=== PATIENT | female | born 1950 | race Caucasian/White ===

== ENCOUNTER 2016-05-24 15:16 | Emergency (ER) | payer MEDICARE, OTHER ==
[~2016-05-24] VITALS: Ht 160 cm; Wt 80.0 kg
[2016-05-24 15:32] VITALS: BP 152/87; PULSE 102; RESP 16; O2SAT 97
[2016-05-24 17:29] VITALS: BP 186/83; PULSE 90; RESP 16; O2SAT 100
[2016-05-24] MEDS ORDERED: LOVA20TA PO (17:38)
[2016-05-24] MEDS ORDERED: VENL150C98 PO (17:38)
[2016-05-24] MEDS ORDERED: LOSA1TAB69 PO (17:38)
[2016-05-24] MEDS ORDERED: ALBU8.5H2 INHALATION (17:38)
[2016-05-24] MEDS ORDERED: PRE20 PO (17:38)
[2016-05-24] MEDS ORDERED: CARV25TA2 PO (17:38)
[2016-05-24] MEDS ORDERED: GLIP2.5T2 PEG (17:38)
[2016-05-24] MEDS ORDERED: AMOX-366 PO (17:38)
[2016-05-24] MEDS ORDERED: MELO-253 PO (17:38)
[2016-05-24] MEDS ORDERED: SITA1TAB6 PO (17:38)
--- NOTE | 2016-05-24 17:44 | ED.REPORT ---
HPI-URI / Cough / Cold Date of Service May 24, 2016 ED Provider: Doc,Ed MD History of Present Illness: d-dimer at 1.7. takes hormone replacement. Sees person at Dr. Yeager. took z-pack given prendisone and augment today for cough. x-rays have been normal. no hx of asthma. Nursing Notes Stated Complaint: COUGH, SENT FROM URGENT CARE Chief Complaint: Respiratory Complaints Allergies: Coded Allergies: No Known Allergies (Unverified , 05/24/16) Scheduled Albuterol HFA (Proair HFA) 8.5 Gm Hfa.aer.ad 2 PUFFS INHALATION Q4H Amoxicillin/Clav K 875-125 mg (Augmentin 875-125 mg) 1 Each Tablet 1 TABLET PO BID Carvedilol (Carvedilol) 25 Mg Tablet 25 MG PO BID Glipizide ER (Glipizide ER) 2.5 Mg Tab.er.24 2.5 MG PEG QAM Losartan/HCTZ 50-12.5 mg (Losartan/HCTZ 50-12.5 mg) 1 Each Tablet 1 TAB PO DAILY Lovastatin (Lovastatin) 20 Mg Tablet 20 MG PO HS Meloxicam (Meloxicam) 15 Mg Tablet 15 MG PO DAILY Prednisone (PredniSONE) 20 Mg Tablet 40 MG PO DAILY Sitagliptin/Metformin 50-1000 mg (Janumet 50-1000 mg) 1 Each Tablet 1 TAB PO BID Venlafaxine ER (Venlafaxine ER) 150 Mg Cap.er.24h 150 MG PO QAM General Time Seen by MD: 17:43 Chief Complaint Cough, productive... (Yellow) Hx Obtained From: Patient Onset Occurred: More than a week ago... (2 weeks) Past Medical History Past Medical History Denies: Asthma Past Surgical History knee replacement, breast reduction sinus surgery Reports: Hysterectomy Smoking History Never Smoker Social History Alcohol Use: "Social" Drug Use: Denies drug use Occupation lives with , work at a [employer] 05/24/2016 Ambulatory Status Independent Review of Systems Basic Review of Systems Cardiovascular: No chest pain, No dyspnea on exertion, No orthopnea, No parox noct dyspnea, No palpitations Hematologic: No bleeding, No bruising Psychiatric: Normal thought content Physical Exam Initial Vital Signs Vital Signs (First) Date Time Temp Pulse Resp B/P Pulse Ox O2 Delivery O2 Flow Rate FiO2 05/24/16 15:32 37.1 102 16 152/87 97 Room Air Initial VS: Reviewed, Vital signs normal Head / Eyes: Atraumatic, Normocephalic, PERRL Neck: Supple, Non-tender, Full range of motion Cardiovascular: Regular rate & rhythm, Heart sounds normal, Intact distal pulses Abdomen / GI: Soft, Non-tender, No guarding, No rebound, No distention Back: No CVA tenderness Lymphatic: No lymphadenopathy Extremities: Vascular intact, Neuro intact, No swelling, No tenderness Skin: Warm, Dry, No cyanosis Neurologic: Alert, Oriented, Nonfocal Psychiatric: Mood/affect normal, Behavior normal, Normal thought content General/Constitutional: Awake, Alert, No acute distress, Well appearing, Well developed, Well hydrated, Well nourished, Cooperative, Not toxic appearing ENT: Atraumatic, Airway patent, Mucous membranes moist, Pharynx NL Respiratory / Chest: Atraumatic, Breath sounds NL, Breath sounds = bilat, No respiratory distress Head / Eyes: Atraumatic, Normocephalic, PERRL Cardiovascular: Heart rate NL, Regular rhythm, Heart sounds NL, No gallop Abdomen: Atraumatic, Soft, Non-tender, McBurney's non-tender Interpretation & Diagnostics Interpretation & Diagnostics: Chest angio is negative for any filling defects Lab Results Interpretation Result Diagram: 05/24/16 1800 05/24/16 1800 Test 05/24/16 18:00 White Blood Count 6.4th/mm3 (3.8-10.1) Red Blood Count 4.42mil/mm3 (3.90-5.20) Hemoglobin 13.5g/dL (12.0-15.6) Hematocrit 40.1% (35.0-46.0) Mean Corpuscular Volume 90.7fL (81-100) Mean Corpuscular Hemoglobin 30.5pg (27.0-35.0) Mean Corpuscular Hemoglobin Concent 33.7% (32.0-37.0) Red Cell Distribution Width 13.0% (12.3-15.4) Platelet Count 314bil/L (150-400) Neutrophils (%) (Auto) 71.5% (40-74) Lymphocytes (%) (Auto) 23.9% (14-46) Monocytes (%) (Auto) 2.8% (4-12) Eosinophils (%) (Auto) 1.3% (0-5) Basophils (%) (Auto) 0.2% (0-3) Sodium Level 136mEq/L (134-144) Potassium Level 4.2mEq/L (3.5-5.2) Chloride Level 96mEq/L (97-108) Carbon Dioxide Level 22mmol/L (18-29) Blood Urea Nitrogen 16mg/dL (8-27) Creatinine 0.69mg/dL (0.57-1.00) Estimat Glomerular Filtration Rate 122mL/min (>59) Glucose Level 302mg/dL (60-99) Calcium Level 10.0mg/dL (8.5-10.1) Total Bilirubin 0.2mg/dL (0.0-1.2) Aspartate Amino Transf (AST/SGOT) 26U/L (0-50) Alanine Aminotransferase (ALT/SGPT) 36U/L (0-32) Alkaline Phosphatase 60U/L (25-165) Total Protein 8.0g/dL (6.4-8.4) Albumin 4.3g/dL (3.4-5.0) Thyroid Stimulating Hormone (TSH) 1.240uIU/mL (0.450-4.500) Hold Garcia Top Tube Received (Received) Re-Eval/Medical Decision Med Decision/Clinical Course Med Decision/Clinical Course: 65 year old female sent from urgent care with elevated d-dime. CT angio is negative. Patient has been prescribed augment in steroids from the urgent care. No sign of COPD of blood clot Discharge & Departure Impression: Primary Impression: Cough Disposition: Home Additional Instructions: The scan does not show any sign of a PE. It does show aymmetric breast tissue, not uncommon with breast reduction surgery. Make sure you keep all your mammograms as scheduled. Continue with the medication you were provided at the walk in clinic. REturn with any concerns. Referrals: Alcides Yeager MD (PCP) EDSupervising Provider for APC: Miki Molina MD copies to: Alcides Yeager MD, Sue ARNP May 24, 2016 17:44
[2016-05-24 18:18] LABS: BASOPHILS % (AUTO) 0.2 % (0-3); EOSINOPHILS % (AUTO) 1.3 % (0-5); MONOCYTES % (AUTO) 2.8 % (4-12); Mean Corpuscular Hemoglobin 30.5 pg (27.0-35.0); Mean Corpuscular Volume 90.7 fL (81-100); NEUTROPHILS % (AUTO) 71.5 % (40-74); Platelet Count 314 bil/L (150-400)
[2016-05-24 19:15] VITALS: BP 159/80; PULSE 97; RESP 16; O2SAT 100
[2016-05-24 19:43] VITALS: BP 165/72; PULSE 99; RESP 17; O2SAT 99
--- NOTE | 2016-05-25 06:01 | DRSVH ---
PROCEDURE: CT ANGIO CHEST PULMONARY EMBOLISM ([id number]) INDICATIONS: cough for 2 weeks increased d-dimer TECHNIQUE: After the administration of intravenous contrast, 2 mm thick sections acquired from the pulmonary api freida to the posterior costophrenic angles. 3-dimensional maximum intensity projection (MIP) coronal a nd sagittal reformats were then acquired through the thorax. For radiation dose reduction, the follo wing was used: automated exposure control, adjustment of mA and/or kV according to patient size. COMPARISON: None. FINDINGS: Image quality: Excellent. Pulmonary arteries: Pulmonary arteries are normal in size, and demonstrate no intraluminal filling d efects to suggest central pulmonary embolism. Lungs and pleura: Lungs are clear. No pleural effusions or pneumothorax. Central and peripheral ai rways are patent. Mediastinum: Heart size is normal, without pericardial effusion. No mediastinal or hilar adenopathy . Thoracic aorta is normal in caliber and enhancement. Esophagus is normal in caliber, without hiat al hernia. Bones and chest wall: No suspicious bony lesions. Mild anterior wedging of L1, age indeterminate. Th yroid gland grossly unremarkable. There is asymmetric breast tissue, left greater right. Recommend ma mmographic correlation.. No axillary or supraclavicular adenopathy. Abdomen: Visualized upper abdominal solid organs appear normal in the early arterial phase of enhanc ement. Presumed multiple bilateral renal cysts although some of these are too small characterize def initively. IMPRESSION: No evidence of pulmonary embolism. No acute consolidation. Additional chronic and incidental findings as above Dictated by: John Barrett M.D. on 05/24/2016 at 19:08 Approved by: John Barrett M.D. on 05/24/2016 at 19:12
== END 2016-05-24 19:46 | disposition home or self-care (01) ==
LOC: SED 15:16
DX: R05 Cough (principal)
CPT/HCPCS: 71275; 80053; 84443; 85025; 99284; Q9967